=== PATIENT | female | born 2000 | race Caucasian/White ===

== ENCOUNTER 2025-02-08 17:52 | Emergency (ER) | payer OTHER, MEDICAID ==
[~2025-02-08] VITALS: Ht 157.5 cm; Wt 69.1 kg
[2025-02-08 21:21] VITALS: BP 132/79; PULSE 102; RESP 20; TEMP 98.5; O2SAT 97
[2025-02-08] MEDS ORDERED: ACET500T58 PO (21:21)
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
== END 2025-02-08 21:39 | disposition home or self-care (01) ==
LOC: ER 17:52
DX: S29.012A Strain of muscle and tendon of back wall of thorax, initial encounter (principal); S39.012A Strain of muscle, fascia and tendon of lower back, initial encounter; Z88.1 Allergy status to other antibiotic agents; V87.9XXA Person injured in other specified (collision)(noncollision) transport accidents involving nonmotor vehicle (traffic), initial encounter; Y93.I9 Activity, other involving external motion; Y92.488 Other paved roadways as the place of occurrence of the external cause; Y99.8 Other external cause status